=== PATIENT | male | born 1960 | race Caucasian/White ===

== ENCOUNTER 2023-01-15 18:59 | Inpatient (IN) | payer OTHER ==
[2023-01-15 19:26] VITALS: BMI 20.1
[2023-01-15] MEDS ORDERED: ACETAMINOPHEN 325 MG TABLET (FP) PO PRN (20:07)
[2023-01-15] MEDS ORDERED: DICYCLOMINE HCL 10 MG CAPSULE PO PRN (20:07)
[2023-01-15] MEDS ORDERED: BISMUTH SUBSALICYLATE 524 MG/30 ML PO PRN (20:07)
[2023-01-15] MEDS ORDERED: POLYETHYLENE GLYCOL (HEALTHYLAX) 3350 17 GM PACKET PO PRN (20:07)
[2023-01-15] MEDS ORDERED: BENZOCAINE/MENTHOL (CHLORASEPTIC ) LOZENGE MM PRN (20:07)
[2023-01-15] MEDS ORDERED: BENZONATATE 200 MG CAPSULE PO PRN (20:07)
[2023-01-15] MEDS ORDERED: LOPERAMIDE HCL 2 MG CAPSULE PO PRN (20:07)
[2023-01-15] MEDS ORDERED: IBUPROFEN 400 MG TABLET (FP) PO PRN (20:07)
[2023-01-15] MEDS ORDERED: MAG HYDROX/AL HYDROX/SIMETH 30 ML UNIT-DOSE CUP PO PRN (20:07)
[2023-01-15] MEDS ORDERED: NALOXONE HCL (KLOXXADO) 8 MG SPRAY NS PRN (20:07)
[2023-01-15] MEDS ORDERED: NALOXONE HCL 0.4 MG/ML VIAL IM PRN (20:07)
[2023-01-15] MEDS ORDERED: NICOTINE POLACRILEX 2 MG GUM BUC PRN (20:07)
[2023-01-15] MEDS ORDERED: IBUPROFEN 600 MG TABLET (FP) PO PRN (20:07)
[2023-01-15] MEDS ORDERED: ONDANSETRON *ODT* 4 MG TABLET SL PRN (20:07)
[2023-01-15] MEDS ORDERED: MAGNESIUM HYDROX 2400MG/30ML ORAL SUSPENSION 30 ML CUP PO PRN (20:07)
[2023-01-15] MEDS ORDERED: guaiFENesin 600 MG TABLET.ER (FP) PO PRN (20:07)
[2023-01-15] MEDS ORDERED: IBUPROFEN 600 MG TABLET (FP) PO ONE (21:28)
[2023-01-15] MEDS: MELATONIN 5 MG TABLETS PO SCH (22:32)
[2023-01-15] MEDS: THIAMINE HCL 100 MG TABLET (FP) PO SCH (22:32)
[2023-01-15] MEDS: hydrOXYzine PAMOATE 25 MG CAPSULE (FP) PO PRN (22:33)
[2023-01-16] MEDS: PRENATAL VITAMINS W/ FOLIC ACID TABLET (FP) PO SCH (11:10)
[2023-01-16] MEDS: METHOCARBAMOL 500 MG TABLET PO PRN (11:10)
[2023-01-16] MEDS: hydrOXYzine PAMOATE 25 MG CAPSULE (FP) PO PRN (11:10)
[2023-01-16] MEDS: NICOTINE 14 MG/24 HOURS TOPICAL PATCH TD SCH (11:11)
[2023-01-16] MEDS ORDERED: LORazepam 1 MG TABLET PO PRN (11:39)
[2023-01-16 11:45] LABS: POTASSIUM 3.8 mmol/L (3.5-5.1)
[2023-01-16 11:52] LABS: ALBUMIN 2.9 g/dl (3.4-5.0); BLOOD UREA NITROGEN 8.5 mg/dL (7-18); CALCIUM 8.3 mg/dL (8.5-10.1); HEMATOCRIT 34.9 % (35.4-49); HEMOGLOBIN 11.6 GM/dL (11.7-16.9); MCH 37.2 pg (25.7-33.7); MCHC 33.1 g/dl (32.0-35.9); MEAN CELL VOLUME 112.3 fl (80-96); MEAN PLT VOLUME 9.1 fl (7.5-11.1); PLATELET COUNT 96 10^3/uL (134-434); RBC 3.11 M/mm3 (4.00-5.60); RDW 14.9 % (11.9-15.9); WHITE BLOOD COUNT 2.8 K/mm3 (4.0-10.0)
[2023-01-16 11:53] LABS: CREATININE 0.7 mg/dL (0.55-1.3)
[2023-01-16 11:54] LABS: BILIRUBIN,TOTAL 0.7 mg/dL (0.2-1); TOT PROT 5.7 g/dl (6.4-8.2)
[2023-01-16] MEDS: BACITRACIN 0.9 GM PACKET TP SCH ×2 (13:34→21:51)
[2023-01-16] MEDS: LORazepam 1 MG TABLET PO SCH ×2 (17:23→22:10)
[2023-01-16] MEDS: THIAMINE HCL 100 MG TABLET (FP) PO SCH (21:44)
[2023-01-16] MEDS: MELATONIN 5 MG TABLETS PO SCH (21:44)
[2023-01-17] MEDS: LORazepam 1 MG TABLET PO SCH ×4 (05:22→22:05)
[2023-01-17] MEDS: BACITRACIN 0.9 GM PACKET TP SCH ×2 (10:55→22:09)
[2023-01-17] MEDS: hydrOXYzine PAMOATE 25 MG CAPSULE (FP) PO PRN (10:55)
[2023-01-17] MEDS: NICOTINE 14 MG/24 HOURS TOPICAL PATCH TD SCH (10:55)
[2023-01-17] MEDS: PRENATAL VITAMINS W/ FOLIC ACID TABLET (FP) PO SCH (10:55)
[2023-01-17] MEDS: METHOCARBAMOL 500 MG TABLET PO PRN (17:24)
[2023-01-17] MEDS: MELATONIN 5 MG TABLETS PO SCH (22:06)
[2023-01-17] MEDS: THIAMINE HCL 100 MG TABLET (FP) PO SCH (22:07)
[2023-01-18] MEDS ORDERED: LORazepam 0.5 MG TABLET PO PRN
[2023-01-18] MEDS: LORazepam 0.5 MG TABLET PO SCH ×4 (05:26→22:06)
[2023-01-18] MEDS: METHOCARBAMOL 500 MG TABLET PO PRN ×3 (05:27→22:08)
[2023-01-18 10:25] LABS: HEMATOCRIT 35.9 % (35.4-49); HEMOGLOBIN 12.1 GM/dL (11.7-16.9); MCH 37.1 pg (25.7-33.7); MCHC 33.6 g/dl (32.0-35.9); MEAN CELL VOLUME 110.3 fl (80-96); MEAN PLT VOLUME 9.5 fl (7.5-11.1); PLATELET COUNT 94 10^3/uL (134-434); RBC 3.25 M/mm3 (4.00-5.60); RDW 15.2 % (11.9-15.9); WHITE BLOOD COUNT 3.8 K/mm3 (4.0-10.0)
[2023-01-18] MEDS: PRENATAL VITAMINS W/ FOLIC ACID TABLET (FP) PO SCH (10:31)
[2023-01-18] MEDS: NICOTINE 14 MG/24 HOURS TOPICAL PATCH TD SCH (10:31)
[2023-01-18] MEDS: BACITRACIN 0.9 GM PACKET TP SCH ×2 (10:31→22:06)
[2023-01-18] MEDS: hydrOXYzine PAMOATE 25 MG CAPSULE (FP) PO PRN (14:55)
[2023-01-18] MEDS: THIAMINE HCL 100 MG TABLET (FP) PO SCH (22:06)
[2023-01-18] MEDS: MELATONIN 5 MG TABLETS PO SCH (22:06)
[2023-01-19] MEDS ORDERED: LORazepam 0.5 MG TABLET PO ONE (05:00)
[2023-01-19] MEDS: METHOCARBAMOL 500 MG TABLET PO PRN (05:25)
[2023-01-19 09:39] VITALS: BP 127/76; PULSE 71; RESP 18; TEMP 97.3
[2023-01-19] MEDS: PRENATAL VITAMINS W/ FOLIC ACID TABLET (FP) PO SCH (10:02)
[2023-01-19] MEDS: NICOTINE 14 MG/24 HOURS TOPICAL PATCH TD SCH (10:02)
[2023-01-19] MEDS: BACITRACIN 0.9 GM PACKET TP SCH (10:02)
== END 2023-01-19 10:30 | disposition home or self-care (01) | DRG 775 ==
LOC: YASAS 18:59 → Y6N 20:45
PROVIDERS: ADMIT Allergy & Immunology; ATTEND Allergy & Immunology
PROC: HZ2ZZZZ Detoxification Services for Substance Abuse Treatment (ICD-10-PCS; principal; 2023-01-15)
DX: F10.230 Alcohol dependence with withdrawal, uncomplicated (principal); F17.210 Nicotine dependence, cigarettes, uncomplicated; D72.819 Decreased white blood cell count, unspecified; D69.6 Thrombocytopenia, unspecified; S00.83XA Contusion of other part of head, initial encounter; S40.022A Contusion of left upper arm, initial encounter; S40.021A Contusion of right upper arm, initial encounter; S80.12XA Contusion of left lower leg, initial encounter; S80.11XA Contusion of right lower leg, initial encounter; Y09 Assault by unspecified means
CPT/HCPCS: 36415; 80053; 82962; 85027; 86780; 87635; 87811; 93005; 93010